=== PATIENT | female | born 1970 | race Caucasian/White ===

== ENCOUNTER 2016-08-29 04:18 | Inpatient (IN) | payer OTHER ==
[2016-08-21 15:41] LABS: HEMATOCRIT 37.2 % (36.0-48.0); HEMOGLOBIN 12.9 g/dL (12.0-16.0)
[2016-08-21 15:54] LABS: ALBUMIN 4.2 G/DL (3.5-5.0); ALKALINE PHOSPHATASE 72 U/L (45-117); BUN (BLOOD UREA NITROGEN) 10 MG/DL (6-23); CALCIUM, SERUM 9.1 MG/DL (8.5-10.4); CHLORIDE, SERUM 106 MMOL/L (96-112); CO2 (CARBON DIOXIDE) 32 MMOL/L (24-34); CREATININE 0.69 MG/DL (0.55-1.02); DIRECT BILIRUBIN 0.1 MG/DL (0.0-0.4); GFR AFRICAN AMERICAN 121 ML/MIN (>=60); GFR NON AFRICAN AMERICAN 104 ML/MIN (>=60); GLUCOSE, SERUM 96 MG/DL (60-99); INDIRECT BILIRUBIN(NOT ORDER) 0.5 MG/DL (0.1-0.9); SGOT(AST) 19 U/L (5-40); SGPT(ALT) 19 U/L (5-65); SODIUM, SERUM 142 MMOL/L (135-148); TOTAL BILIRUBIN 0.6 MG/DL (0-1.2); TOTAL PROTEIN 7.6 G/DL (6.0-8.5)
--- NOTE | ~2016-08-29 | OP ---
Record Of Operation [facility] [address] [place]. [address] NAME: FRANCIS GORDON : 70 STATUS : DIS IN PAT#: [id number] AGE: 46 ADM/REG DATE : 08/29/16 MR#: [id number] REPORT SERV DATE: 09/05/16 DICTATED BY: RICHAR ROGERS II DATE: 09/05/16 REPORT STATUS : Draft TRANSCRIBED BY: MODL DATE: 09/05/16 DATE OF PROCEDURE: 08/29/2016 SRUGEON: Billy Iniguez M.D. PASSENGER ELEVATOR OPERATOR: Richar Rogers M.D.. PREOPERATIVE DIAGNOSIS: Severe degenerative disk disease, L5-S1. POSTOPERATIVE DIAGNOSIS: Severe degenerative disk disease, L5-S1. PROCEDURE: 1. Anterior exposure of the lumbar spine. 2. total disk replacement at L5-S1. ANESTHESIA: General. DETAILS OF PROCEDURE: Please note, I am an customer care assistant on the operation, I am dictating a portion of the note. The patient was taken to the operating room and placed in supine position. General anesthesia was achieved. Protective padding was placed and a lumbar roll. We then prepped and draped in a sterile fashion. I made an incision directly over L5 S1, divided the rectus sheath on the left side. I entered the preperitoneal space and bluntly dissected into the retroperitoneal space and swept the peritoneum, the ureter, and abdominal contents to the right to expose the iliac bifurcation. The middle sacral vessels were identified and ligated with 2-0 silk suture. We then completely mobilized the vessels, and exposed the vertebral bodies and disk space at L5-S1, and we marked this with fluoroscopy. A diskectomy was performed along with total disk replacement, please see Dr. Iniguez's notes for details. Once x-ray confirmed adequate placement, we inspected the retroperitoneum. It was hemostatic. The ureter was intact. We removed the retractors and allowed the abdominal contents to return to their normal anatomic position. We then closed using running PDS and interrupted Vicryl. We closed the skin with Monocryl. At the end of the procedure, the patient was stable. PARRIS/LORY Richar Rogers II, M.D. / [id number] CC: Billy Iniguez II, M.D. Record Of Operation [address] [address] NAME: FRANCIS GORDON : 70 STATUS : DIS IN PAT#: [id number] AGE: 46 ADM/REG DATE : 08/29/16 MR#: [id number] REPORT SERV DATE: 09/05/16 DICTATED BY: RICHAR ROGERS II DATE: 09/05/16 REPORT STATUS : Draft TRANSCRIBED BY: MODL DATE: 09/05/16 Praful Good MD
--- NOTE | ~2016-08-29 | OP ---
Record Of Operation [facility] [address] [place]. [address] NAME: FRANCIS GORDON : 70 STATUS : DIS IN PAT#: [id number] AGE: 46 ADM/REG DATE : 08/29/16 MR#: [id number] REPORT SERV DATE: 09/01/16 DICTATED BY: MARY ANN INIGUEZ II DATE: 09/01/16 REPORT STATUS : Draft TRANSCRIBED BY: MODAna DATE: 09/01/16 DATE OF PROCEDURE: 08/29/2016 PREOPERATIVE DIAGNOSES: 1. L5-S1 degenerative disk disease with post-diskectomy syndrome. 2. History of L5-S1 laminectomy and diskectomy. 3. Bilateral lower extremity radiculopathy secondary to foraminal stenosis. POSTOPERATIVE DIAGNOSES: 1. L5-S1 degenerative disk disease with post-diskectomy syndrome. 2. History of L5-S1 laminectomy and diskectomy. 3. Bilateral lower extremity radiculopathy secondary to foraminal stenosis. PROCEDURES: 1. L5-S1 total disk replacement. 2. Use of fluoroscopy. SURGEON: Mary Ann Iniguez M.D. QUALITY ASSURANCE SUPERVISOR: Richar Rodriguez M.D. FLUIDS REPLACED: Approximately 1500 mL LR. ESTIMATED BLOOD LOSS: 50 mL. DRAINS: None. COMPLICATIONS: None. IMPLANTS: Synthes ProDisc. PREOPERATIVE HISTORY: This is a very friendly 46-year-old female, who lives in [facility], who reports a history of L5-S1 laminectomy. This did help her leg pain, but her back pain has persisted. The surgeon at that time she reports said she would likely need a fusion or disc replacement in the near future. She and I discussed the pros and cons of continuing nonoperative care versus surgery. We discussed the rates of success versus failure of the fusion or artificial disc replacement to help her. She was very interested in the artificial disc replacement. However, I advised her she had significant disk space collapse and that the total disc replacement would not likely recreate motion, but would maintain motion. She understood as she is overall very intelligent. We discussed the risks which include, but are not limited to, pulmonary embolus, DVT, significant blood loss, and a small chance of failure of the implant. DESCRIPTION OF PROCEDURE: After informed consent was obtained, the patient was brought to the operating room at her request, and general anesthesia achieved. The abdomen was prepped and draped in a sterile fashion. Next, a horizontal incision was performed and the Record Of Operation [facility] [id number] [place]. [address] NAME: FRANCIS GORDON : 70 STATUS : DIS IN PAT#: [id number] AGE: 46 ADM/REG DATE : 08/29/16 MR#: [id number] REPORT SERV DATE: 09/01/16 DICTATED BY: MARY ANN INIGUEZ II DATE: 09/01/16 REPORT STATUS : Draft TRANSCRIBED BY: LORY DATE: 09/01/16 retroperitoneal exposure completed with Dr. Rodriguez and myself. The iliac vessels were then identified and protected. Fortunately violation of the peritoneal was avoided. Next, the L5-S1 disc space was identified. The middle sacral vein was ligated. The disc was now confirmed radiographically. Under loupe magnification head lamp, the diskectomy was initiated with the knife followed by use of the Verdugo elevator and the pituitary rongeurs for diskectomy. The endplates were denuded of their cartilage. The subchondral bone was not violated. Next, the posterior vertebral body osteophytes were removed and the high-speed bur used to remove additional osteophytes. The nerve hook was now used to confirm the foraminal decompression. Next, the Synthes ProDisc system was trialed. The appropriate size was now assembled on the back table and then placed under fluoroscopy. Excellent fit was obtained. At this point, the area was irrigated and closure now performed. The patient was then extubated and transferred to PACU in stable condition. RHIANNON/LORY Mary Ann Iniguez II, M.D. / [id number] CC: Boyd Trent II, MD
[~2016-08-29 04:18] MED LIST: HYDROCHLOROT12.5 MG PO; METHOC750B PO; NEUR400 PO; NORCO1 TA1 PO; TOPXL50 PO; VALIUM10 MG PO
[2016-08-30] MEDS ORDERED: NORCO1 TA1 PO (12:14)
[2016-08-30] MEDS ORDERED: VALIUM10 MG PO (12:15)
[2016-08-30] MEDS ORDERED: MSCONTIN PO (12:15)
[2017-01-03] MEDS ORDERED: ALEVE220 MG PO (09:23)
== END 2016-08-30 15:44 | disposition home or self-care (01) | DRG 518 ==
LOC: SDC/OF 04:18 → PACU 09:03 → 3SO 11:13
PROVIDERS: Orthopaedic Surgery
PROC: 0SR40JZ Replacement of Lumbosacral Disc with Synthetic Substitute, Open Approach (ICD-10-PCS; principal; 2016-08-29 05:30)
DX: M51.17 Intervertebral disc disorders with radiculopathy, lumbosacral region (principal); I10 Essential (primary) hypertension; R20.2 Paresthesia of skin; Z87.442 Personal history of urinary calculi; F17.210 Nicotine dependence, cigarettes, uncomplicated
CPT/HCPCS: 36415; 80048; 80076; 82962; 85014; 85018; 86850; 86900; 86901; 87641; 88304; 88311; 93005; 97116-GP; 97161-GP; A9270-GY; C1713; J0690; J1644; J2250; J2405; J2710; J3010